=== PATIENT | female | born 1995 | race Caucasian/White ===

== ENCOUNTER 2018-07-05 23:34 | Emergency (ER) | payer MEDICAID ==
[2018-07-05] MEDS ORDERED: ONDANSETRON 4 MG/2 ML VIAL ONE (23:39)
--- NOTE | 2018-07-05 23:43 | EDPHY ---
H & P Stated Complaint: ETOH, decreased LOC, N/V Time Seen by Provider: 07/05/18 23:36 HPI/ROS: Chief Complaint: Alcohol intoxication, vomiting HPI: 22-year-old female who was found by her boyfriend intoxicated. Patient passed out after vomiting. Is unable to ambulate on their own. Patient had 2 shots of vodka and 2 shots of Tequila tonight which is very atypical for her. She has been vomiting. ROS: 10 systems were reviewed and were negative except those elements noted in the HPI. PMH: None Medications: None Social History: Positive for alcohol Family History: non-contributory Physical Exam: Gen: Somnolent, responds to painful stimuli, maintaining airway, smells of alcohol and emesis HEENT: Atraumatic Nose: no epistaxis or deformity Eyes: PERRLA, EOMI Mouth: Moist mucosa Neck: Supple, no step-offs or deformity Chest: Atraumatic, lungs clear to auscultation Heart: S1, S2 normal, no murmur Abd: Soft, non-tender, no guarding Back: Atraumatic Ext: no edema, atraumatic Skin: no rash Neuro: Sensation grossly intact, Strength 5/5 in bilateral upper and lower extremities - Personal History Current Tetanus/Diphtheria Vaccine: Unsure Current Tetanus Diphtheria and Acellular Pertussis (TDAP): Unsure - Medical/Surgical History Hx Asthma: No Hx Chronic Respiratory Disease: No Hx Diabetes: No Hx Cardiac Disease: No Hx Renal Disease: No Hx Cirrhosis: No Hx Alcoholism: No Hx HIV/AIDS: No Hx Splenectomy or Spleen Trauma: No - Social History Smoking Status: Never smoked Constitutional: Initial Vital Signs Heart Rate 71 07/05/18 23:37 Respiratory Rate 16 07/05/18 23:37 Blood Pressure 113/79 07/05/18 23:37 O2 Sat (%) 89 L 07/05/18 23:37 O2 Delivery Mode Room Air O2 (L/minute) 2 Allergies/Adverse Reactions: No Known Allergies Allergy (Unverified 07/05/18 23:37) Home Medications: Medication Instructions Recorded NK [No Known Home Meds] 07/05/18 Medical Decision Making ED Course/Re-evaluation: Patient signed out to Dr. Rodriguez pending improvement in her mental status, ability to ambulate and cessation of her vomiting. - Data Points Medications Given: Discontinued Medications Sodium Chloride (Ns) 1,000 mls @ 0 mls/hr IV ONCE ONE PRN Reason: Wide Open Stop: 07/05/18 23:51 Last Admin: 07/05/18 23:51 Dose: 1,000 mls Ondansetron HCl (Zofran) 4 mg IVP EDNOW ONE Stop: 07/05/18 23:51 Last Admin: 07/05/18 23:51 Dose: 4 mg Ondansetron HCl (Zofran) 4 mg IVP EDNOW ONE Stop: 07/06/18 01:58 Last Admin: 07/06/18 01:58 Dose: 4 mg Departure - Departure Disposition: Home, Routine, Self-Care Clinical Impression: Alcoholic intoxication Condition: Good Instructions: Alcohol Intoxication (ED) Referrals: NONE *PRIMARY CARE P,. [Primary Care Provider] - As per Instructions
[2018-07-05] MEDS ORDERED: NS 1,000 ML IV ONE (23:50)
[2018-07-05] MEDS ORDERED: ONDANSETRON 4 MG/2 ML VIAL IVP ONE (23:50)
[2018-07-06] MEDS ORDERED: ONDANSETRON 4 MG/2 ML VIAL IVP ONE (01:57)
[2018-07-06 05:25] VITALS: BP 124/76
== END 2018-07-06 05:25 | disposition home or self-care (01) ==
DX: F10.920 Alcohol use, unspecified with intoxication, uncomplicated (principal); R11.10 Vomiting, unspecified; Y90.9 Presence of alcohol in blood, level not specified
CPT/HCPCS: 96374; J2405